=== PATIENT | male | born 1955 | race Caucasian/White ===

== ENCOUNTER 2017-02-26 07:02 | Day surgery (SDC) | payer MEDICARE ==
[~2017-02-26] VITALS: Ht 185.4 cm; Wt 106.6 kg
[~2017-02-26 07:02] MED LIST: AMLODIPINE5 MG PO; BREO ELLIPTA 101 INH IN; DOXAZOSIN1 M1 PO; DULOXETINE HCL30 MG; ELFOLATE7.5 MG; EQL IBUPROFEN200 MG PO; HYDROCHLOROT12.5 MG PO; LIPITOR40 M1 PO; PERCOCET1 TA4 PO; SYMBICORT 80-4.5MCG; TESTOSTERONE100 MG; VENLAFAXINE HCL75 M1 PO; ZESTRIL10 M1 PO; ZOCOR20 M1 PO
[2017-02-26 09:35] VITALS: BP 101/59
== END 2017-02-26 09:53 | disposition home or self-care (01) ==
LOC: ENDO 07:02
PROVIDERS: ATTEND Surgery
PROC: 0DBL8ZX Excision of Transverse Colon, Via Natural or Artificial Opening Endoscopic, Diagnostic (ICD-10-PCS; principal; 2017-02-26)
DX: Z12.11 Encounter for screening for malignant neoplasm of colon (principal); D12.3 Benign neoplasm of transverse colon; K57.30 Diverticulosis of large intestine without perforation or abscess without bleeding; F17.200 Nicotine dependence, unspecified, uncomplicated

== ENCOUNTER 2017-09-17 05:43 | Day surgery (SDC) | payer MEDICARE ==
[~2017-09-17] VITALS: Ht 185.4 cm; Wt 112.5 kg
[~2017-09-17 05:43] MED LIST changes: +ANDROGEL PUMP TD
[2017-09-17 13:23] VITALS: BP 115/92
[2017-09-23] MEDS ORDERED: PERCOCET1 TA4 PO (08:22)
[2017-09-23] MEDS ORDERED: VOLTAREN1%GEL TOP (08:23)
== END 2017-09-17 07:45 | disposition home or self-care (01) ==
LOC: ORM 05:43
PROVIDERS: ATTEND Anesthesiology Pain Medicine
PROC: 3E0U33Z Introduction of Anti-inflammatory into Joints, Percutaneous Approach (ICD-10-PCS; principal; 2017-09-17)
PROC: 3E0U3BZ Introduction of Anesthetic Agent into Joints, Percutaneous Approach (ICD-10-PCS; 2017-09-17)
DX: M46.1 Sacroiliitis, not elsewhere classified (principal); M54.5 Low back pain

== ENCOUNTER 2019-03-10 19:16 | Emergency (ER) | payer MEDICARE ==
[~2019-03-10] VITALS: Ht 185.4 cm; Wt 95.0 kg
[~2019-03-10 19:16] MED LIST changes: +MEDDOSEPAK PO; +VOLTAREN1%GEL TOP
[2019-03-10 19:55] VITALS: BP 156/77
[2019-03-10] MEDS ORDERED: (None)3.5 GM OD (19:58)
[2019-03-10] MEDS ORDERED: GENTAMICIN SULF5 ML OD (19:58)
== END 2019-03-10 20:07 | disposition home or self-care (01) ==
LOC: ED 19:16
DX: S05.01XA Injury of conjunctiva and corneal abrasion without foreign body, right eye, initial encounter (principal); I10 Essential (primary) hypertension; J44.9 Chronic obstructive pulmonary disease, unspecified; F17.210 Nicotine dependence, cigarettes, uncomplicated; W22.8XXA Striking against or struck by other objects, initial encounter; Y93.89 Activity, other specified; Y92.008 Other place in unspecified non-institutional (private) residence as the place of occurrence of the external cause

== ENCOUNTER 2022-03-25 07:09 | Day surgery (SDC) | payer MEDICARE ==
[~2022-03-25] VITALS: Ht 188 cm; Wt 95.7 kg
[~2022-03-25 07:09] MED LIST changes: +(None)3.5 GM OD; +GENTAMICIN SULF5 ML OD; +MOTRIN200 MG PO; +SPIRIVA RE1.25 MCG/A IN
[2022-03-25 09:40] VITALS: BP 92/58
== END 2022-03-25 09:43 | disposition home or self-care (01) ==
LOC: ENDO 07:09 → ORM 09:20 → ENDO 09:43 → ORM 10:30
PROVIDERS: ATTEND Internal Medicine Gastroenterology
PROC: 0DBH8ZX Excision of Cecum, Via Natural or Artificial Opening Endoscopic, Diagnostic (ICD-10-PCS; principal; 2022-03-25)
PROC: 0DBL8ZX Excision of Transverse Colon, Via Natural or Artificial Opening Endoscopic, Diagnostic (ICD-10-PCS; 2022-03-25)
PROC: 0DBP8ZX Excision of Rectum, Via Natural or Artificial Opening Endoscopic, Diagnostic (ICD-10-PCS; 2022-03-25)
PROC: 0DBN8ZX Excision of Sigmoid Colon, Via Natural or Artificial Opening Endoscopic, Diagnostic (ICD-10-PCS; 2022-03-25)
DX: Z12.11 Encounter for screening for malignant neoplasm of colon (principal); D12.2 Benign neoplasm of ascending colon; D12.4 Benign neoplasm of descending colon; D12.3 Benign neoplasm of transverse colon; D12.5 Benign neoplasm of sigmoid colon; K63.5 Polyp of colon; K62.1 Rectal polyp; K57.30 Diverticulosis of large intestine without perforation or abscess without bleeding; K64.8 Other hemorrhoids; Z86.010 Personal history of colon polyps